=== PATIENT | male | born 1985 | race Caucasian/White ===

== ENCOUNTER 2017-01-07 08:21 | Emergency (ER) | payer OTHER ==
[~2017-01-07 08:21] MED LIST: KEFLEX500 MG PO
[2017-01-07] MEDS ORDERED: BACTRIM DS TAB1 EAC2 PO (08:48)
[2017-01-07] MEDS ORDERED: CLINDAMYCIN HC150 M1 PO (08:48)
== END 2017-01-07 09:02 ==
LOC: EDMED 08:21
DX: S81.832A Puncture wound without foreign body, left lower leg, initial encounter (principal); L03.116 Cellulitis of left lower limb; W26.8XXA Contact with other sharp object(s), not elsewhere classified, initial encounter